=== PATIENT | female | born 1950 | race Caucasian/White ===

== ENCOUNTER → 2016-06-15 | Outpatient (CLI) | payer BC ==
--- NOTE | 2016-06-15 16:55 | MR ---
MRI of the right hand, without contrast. HISTORY: Pain at the base of the thumb. TECHNIQUE: Axial, sagittal, and coronal MR sequences of the right hand are obtained, with a cutaneous marker placed at the site of clinical symptomatology. FINDINGS: At the site of clinical symptoms, there is evidence of moderate osteoarthritis at the first CMC joint. Diffuse chondral loss is associated with slight radial subluxation of the proximal first metacarpal. The first metacarpophalangeal joint appears intact as does the interphalangeal joint of t he thumb. Carpal bones demonstrate normal marrow signal intensity, with preservation of articular car tilage. Flexor and extensor tendons are intact. No TFCC tear or intrinsic ligament tear is identified . IMPRESSION:. Moderate osteoarthritis of the first carpometacarpal joint, otherwise negative.
== END ==
LOC: FIMAGING 12:53
PROVIDERS: ATTEND Anesthesiology Pain Medicine
DX: M18.11 Unilateral primary osteoarthritis of first carpometacarpal joint, right hand (principal)

== ENCOUNTER → 2017-10-29 | Outpatient (CLI) | payer BC | LOC: FIMAGING 06:49 | DX: M51.16 Intervertebral disc disorders with radiculopathy, lumbar region (principal); M48.07 Spinal stenosis, lumbosacral region; M48.061 Spinal stenosis, lumbar region without neurogenic claudication; N28.89 Other specified disorders of kidney and ureter ==

== ENCOUNTER → 2017-11-21 | Outpatient (CLI) | payer BC ==
[~2017-11-21] MED LIST: IOPAMIDOL (ISOVUE-300) 100 ML BTL ONE
== END ==
LOC: FIMAGING 15:49
DX: D41.02 Neoplasm of uncertain behavior of left kidney (principal); N28.1 Cyst of kidney, acquired
CPT/HCPCS: 82565-PO; Q9967